=== PATIENT | male | born 1950 | race Caucasian/White ===

== ENCOUNTER 2017-09-03 06:59 | Emergency (ER) | payer OTHER ==
[~2017-09-03] VITALS: Ht 172.7 cm; Wt 78.9 kg
[~2017-09-03 06:59] MED LIST: AMOX500C PO; ATOR20TA15 PO; CALO.005%T TOPICAL; CARA1TAB6 PO; TRAZ100T5 PO
[2017-09-03 07:10] VITALS: BP 159/79; PULSE 79; RESP 18; TEMP 98.3; O2SAT 98
[2017-09-03 07:47] LABS: AUTOMATED NEUTROPHIL # 3.7 TH/MM3 (1.8-7.7); BASOPHIL % 0.6 % (0.0-2.0); EOSINOPHIL # 0.1 TH/MM3 (0-0.4); EOSINOPHIL % 1.1 % (0.0-4.0); HEMATOCRIT 44.6 % (39.0-51.0); HEMOGLOBIN 13.9 GM/DL (13.0-17.0); LYMPH % 24.2 % (9.0-44.0); LYMPHOCYTE # 1.4 TH/MM3 (1.0-4.8); MEAN CELL VOLUME 91.1 FL (80.0-100.0); MEAN CORPUSCULAR HEMOGLOBIN 28.4 PG (27.0-34.0); MEAN CORPUSCULAR HGB CONC 31.2 % (32.0-36.0); MEAN PLATELET VOLUME 6.6 FL (7.0-11.0); MONO % 11.1 % (0.0-8.0); MONOCYTE # 0.6 TH/MM3 (0-0.9); PLATELET COUNT 273 TH/MM3 (150-450); RED BLOOD COUNT 4.89 MIL/MM3 (4.50-5.90); RED CELL DISTRIBUTION WIDTH 13.9 % (11.6-17.2); WHITE BLOOD COUNT 5.8 TH/MM3 (4.0-11.0)
--- NOTE | 2017-09-03 07:56 | PD ---
HPI Chief Complaint: Complaint Time Seen by Provider: 07:17 Travel History International Travel<30 days: No Contact w/Intl Traveler<30days: No Traveled to known affect area: No History of Present Illness HPI 67-year-old male presents with urinating blood intermittently over the past couple of weeks. He states that he talked with his sister today who told him to get it checked out. He denies any worsening symptoms. He denies any pain or fever. He denies any other concurrent complaints. He does not take any blood thinner medications. He denies specific modifying factors. [facility]LY [facility] Past Medical History Anxiety: Yes Influenza Vaccination: No Past Surgical History Surgical History: No Previous Surgery Social History Alcohol Use: Yes (10-12 BEERS/WEEK) Tobacco Use: Yes (SMOKES WITH HIS BEERS) Substance Use: No Allergies-Medications (Allergen,Severity, Reaction): Coded Allergies: No Known Allergies (Verified , 10/12/16) Reported Meds & Prescriptions Reported Meds & Active Scripts Active Reported Trazodone (Trazodone HCl) 50 Mg Tab 50 Mg PO BID Review of Systems Except as stated in HPI: all other systems reviewed are Neg Physical Exam Narrative GENERAL: Well-nourished, well-developed patient. SKIN: Warm and dry. HEAD: Normocephalic and atraumatic. EYES: No injection or drainage. ENT: No nasal drainage noted. NECK: Supple, trachea midline. CARDIOVASCULAR: Regular rate and rhythm RESPIRATORY: Breath sounds equal bilaterally. No accessory muscle use. GASTROINTESTINAL: Abdomen soft, non-tender, nondistended. EXTREMITIES: No edema. BACK: Nontender without obvious deformity. NEUROLOGICAL: Awake and alert. Motor and sensory grossly within normal limits. Normal speech. Data Data Last Documented VS Vital Signs Date Time Temp Pulse Resp B/P (MAP) Pulse Ox O2 Delivery O2 Flow Rate FiO2 09/03/17 07:10 98.3 79 18 159/79 (105) 98 Room Air Orders Orders Urinalysis - C+S If Indicated (09/03/17 07:08) Complete Blood Count With Diff (09/03/17 07:23) Basic Metabolic Panel (Bmp) (09/03/17 07:23) Iv Access Insert/Monitor (09/03/17 07:23) Ct Abd/Pel W/O Iv Contrast (09/03/17 ) Ed Discharge Order (09/03/17 09:46) Labs Laboratory Tests Test 09/03/17 07:44 09/03/17 07:54 White Blood Count 5.8 TH/MM3 Red Blood Count 4.89 MIL/MM3 Hemoglobin 13.9 GM/DL Hematocrit 44.6 % Mean Corpuscular Volume 91.1 FL Mean Corpuscular Hemoglobin 28.4 PG Mean Corpuscular Hemoglobin Concent 31.2 % Red Cell Distribution Width 13.9 % Platelet Count 273 TH/MM3 Mean Platelet Volume 6.6 FL Neutrophils (%) (Auto) 63.0 % Lymphocytes (%) (Auto) 24.2 % Monocytes (%) (Auto) 11.1 % Eosinophils (%) (Auto) 1.1 % Basophils (%) (Auto) 0.6 % Neutrophils # (Auto) 3.7 TH/MM3 Lymphocytes # (Auto) 1.4 TH/MM3 Monocytes # (Auto) 0.6 TH/MM3 Eosinophils # (Auto) 0.1 TH/MM3 Basophils # (Auto) 0.0 TH/MM3 CBC Comment DIFF FINAL Differential Comment Blood Urea Nitrogen 25 MG/DL Creatinine 0.92 MG/DL Random Glucose 110 MG/DL Calcium Level 8.7 MG/DL Sodium Level 137 MEQ/L Potassium Level 4.3 MEQ/L Chloride Level 104 MEQ/L Carbon Dioxide Level 26.6 MEQ/L Anion Gap 6 MEQ/L Estimat Glomerular Filtration Rate 83 ML/MIN Urine Collection Type CLEAN CATCH Urine Color YELLOW Urine Turbidity SLIGHT Urine pH 5.5 Urine Specific Bypro 1.025 Urine Protein TRACE mg/dL Urine Glucose (UA) NEG mg/dL Urine Ketones NEG mg/dL Urine Occult Blood LARGE Urine Nitrite NEG Urine Bilirubin NEG Urine Leukocyte Esterase NEG Urine RBC 100-200 /hpf Urine Squamous Epithelial Cells 0-5 /hpf Urine Uric Acid Crystals MOD /hpf Microscopic Urinalysis Comment CULT NOT INDICATED Urine Collection Time 07:54 [facility] Medical Decision Making Medical Screen Exam Complete: Yes Emergency Medical Condition: Yes Medical Record Reviewed: Yes (past history confirmed) Interpretation(s) CBC & BMP Diagram 09/03/17 07:44 Calcium Level 8.7 ua with blood without infection CT abdomen pelvis shows right renal pelvis calculi, 2.6 cm right renal cyst, mild diverticulosis-patient given copy for follow-up Differential Diagnosis UTI, stone, mass Narrative Course Will check blood work, urinalysis and reevaluate Given urinalysis shows no signs of infection we will proceed with CT to rule out stone or mass CT without ureteral stone, CT does show a minimally complex right renal cyst- this can be followed outpatient,Patient denies any new complaints, all questions answered. Patient knows that follow up is incumbent on them and to return to the emergency room immediately if new or worsening symptoms develop. Patient given strict return precautions, vitals reviewed and are normal, agrees to further workup as an outpatient. Diagnosis Primary Impression: Hematuria Qualified Codes: R31.9 - Hematuria, unspecified Additional Impressions: Renal cyst, right Calculus of right kidney Referrals: Urologist call for appointment Patient Instructions: General Instructions Additional Instructions: return as needed Med/Other Pt SpecificInfo: No Change to Meds Disposition: 01 DISCHARGE HOME Condition: Stable Cristiane Coleman MD Sep 03, 2017 07:56
[2017-09-03 07:58] LABS: BICARBONATE 26.6 MEQ/L (21.0-32.0); CALCIUM 8.7 MG/DL (8.5-10.1)
[2017-09-03 07:59] LABS: BILIRUBIN, URINE NEG (NEG); BLOOD, URINE LARGE (NEG); GLUCOSE,URINE NEG (NEG); KETONE, URINE NEG (NEG); NITRITE,URINE NEG (NEG); PH, URINE 5.5 (5.0-8.5); URINE LEUKOCYTE ESTERASE NEG (NEG)
[2017-09-03] MEDS ORDERED: TRAZ50TA12 PO (08:00)
[2017-09-03 08:02] LABS: CREATININE 0.92 MG/DL (0.60-1.30)
[2017-09-03 08:25] LABS: RBC, URINE 100-200 /hpf (0-3); SQUAMOUS EPITHELIAL CELL URINE 0-5 /hpf (0-5); URINE COLOR YELLOW (YELLW/STRAW)
[2017-09-03 08:31] LABS: URIC ACID CRYSTALS, URINE MOD /hpf
--- NOTE | 2017-09-03 09:45 | RADRPT ---
EXAM DATE/TIME: 09/03/2017 09:19 [place] COMPARISON: No previous studies available for comparison. INDICATIONS : Intermittent hematuria for two weeks. ORAL CONTRAST: No oral contrast ingested. RADIATION DOSE: 14.09 CTDIvol (mGy) MEDICAL HISTORY : None SURGICAL HISTORY : None. ENCOUNTER: Initial ACUITY: 2 weeks PAIN SCALE: 0/10 LOCATION: pelvis abdomen TECHNIQUE: Volumetric scanning of the abdomen and pelvis was performed. Using automated exposure control and ad justment of the mA and/or kV according to patient size, radiation dose was kept as low as reasonably achievable to obtain optimal diagnostic quality images. DICOM format image data is available electro nically for review and comparison. FINDINGS: LOWER LUNGS: Platelike airspace disease in the lingular base. LIVER: Homogeneous density without lesion. There is no dilation of the biliary tree. No calcified gallston es. SPLEEN: Normal size without lesion. PANCREAS: Within normal limits. KIDNEYS: Bulky calcified calculus in the right renal pelvis measuring 1.3 x 0.7 x 1.0 cm. There is very mild a ssociated hydronephrosis. No radiopaque renal calculi on the left. There is a slightly complex cyst i n the mid right kidney measuring 2.6 x 2.4 cm with rim-like calcification inferiorly. Subcentimeter h ypodense cystic lesion in the inferior pole the right kidney is too small to fully characterize. No a dditional contour deforming abnormalities. ADRENAL GLANDS: Within normal limits. VASCULAR: There is no aortic aneurysm. BOWEL/MESENTERY: The stomach, small bowel, and colon demonstrate no acute abnormality. Mild sigmoid diverticulosis. No rmal appendix. There is no free intraperitoneal air or fluid. ABDOMINAL WALL: Within normal limits. RETROPERITONEUM: There is no lymphadenopathy. BLADDER: No wall thickening or mass. No radiopaque calculi. REPRODUCTIVE: Mild prostate calcifications. INGUINAL: There is no lymphadenopathy or hernia. MUSCULOSKELETAL: Degenerative spondylosis of the lower lumbar spine. No focal lytic or blastic bony lesions. CONCLUSION: 1. Bulky calcified calculus in the right renal pelvis measuring 1.3 x 0.7 x 1.0 cm. Resultant very mi ld right-sided hydronephrosis. 2. Minimally complex 2.6 cm cyst, Bosniak II, in the mid right kidney secondary to rim-like calcifica tion inferiorly. Additional subcentimeter cystic lesion in the inferior pole of the right kidney is t oo small to characterize. 3. Mild sigmoid diverticulosis. Denys Delarosa MD on September 03, 2017 at 9:35 Board Certified Radiologist. This report was verified electronically.
== END 2017-09-03 10:37 | disposition home or self-care (01) ==
LOC: PHED 06:59
DX: R31.9 Hematuria, unspecified (principal); N28.1 Cyst of kidney, acquired; N13.2 Hydronephrosis with renal and ureteral calculous obstruction; Z72.0 Tobacco use; Z72.89 Other problems related to lifestyle
CPT/HCPCS: 74176; 80048; 81001; 85025